=== PATIENT | female | born 2000 | race Caucasian/White ===

== ENCOUNTER 2019-10-19 15:45 | Outpatient (CLI) | payer BC, SELFPAY ==
--- NOTE | ~2019-10-19 | XR_ITS ---
XR chest 2V DATE: 10/19/2019 16:13 INDICATION: Atypical chest pain TECHNIQUE: PA and lateral views COMPARISON: 01/15/2019 2 view chest FINDINGS: Normal heart size. No hilar or mediastinal enlargement. No pulmonary infiltrate or consol idation, pleural effusion, pulmonary vascular congestion or pneumothorax. IMPRESSION: No active cardiopulmonary disease Reviewed, dictated and finalized at location A.
== END 2019-10-19 15:46 | disposition home or self-care (01) ==
LOC: ANHIMG 15:51
PROVIDERS: PCP Physician Assistant; Visit Provider Physician Assistant
DX: R07.89 Other chest pain (principal)
CPT/HCPCS: 71046

== ENCOUNTER 2020-01-02 09:35 | Outpatient (NON) | payer BC, SELFPAY ==
[2020-01-02 22:40] LABS: SARS-CoV-2 RNA PCR Negative
== END 2020-01-02 09:36 ==
LOC: ANHCOVIDDT 09:36
PROVIDERS: PCP Physician Assistant; Visit Provider Physician Assistant
DX: Z20.828 Contact with and (suspected) exposure to other viral communicable diseases (principal)
CPT/HCPCS: 87635; C9803; U0003

== ENCOUNTER 2020-04-06 07:49 | Emergency (ER) | payer BC, SELFPAY ==
--- NOTE | ~2020-04-06 | XR_ITS ---
EXAMINATION: XR chest 1V portable DATE: 04/06/2020 09:57 INDICATION: COVID positive presenting with worsening cough TECHNIQUE: frontal view of the chest was obtained. COMPARISON: Chest radiograph dated 10/19/19 FINDINGS: The lungs remain clear with no focal airspace opacities, pulmonary edema, pleural effusion or pneumot horax. The cardiomediastinal silhouette is normal. Visualized bones and soft tissues are unremarkable . IMPRESSION: 1. Normal chest radiograph. Reviewed, dictated and finalized at location A. PROGRAMMER IMPRESSION: 1. Normal chest radiograph.
[2020-04-06 07:54] VITALS: BP 130/81; PULSE 93; RESP 20; TEMP 36.8; O2SAT 100
--- NOTE | 2020-04-06 09:43 | ED.URI ---
HPI - URI/Sore Throat General Chief Complaint: Upper Respiratory Infection Stated Complaint: cough, covid + 4 weeks ago Time Seen by Provider: 04/06/20 08:37 Source: patient Mode of arrival: ambulatory Limitations: no limitations History of Present Illness HPI Narrative: PAtient is a 19 year old female with history of asthma who presents for evaluation of worsening cough. She states she was diagnosed with covid 4 weeks ago. She was started on antibiotics and steroids on because she has a residual cough. She has come to ER because her cough is worsen. She reports pain in her chest with breathing and cough. She denies fever, chills, nausea, vomiting or wheezing. Related Data Home Medications Medication Instructions Recorded Confirmed albuterol sulfate INHALATION 04/06/20 azithromycin 04/06/20 norgestimate-ethinyl estradiol tablet 04/06/20 [Tri Femynor] prednisone 04/06/20 Allergies Allergy/AdvReac Type Severity Reaction Status Date / Time amoxicillin Allergy Mild Unknown Verified 04/06/20 07:56 cefprozil Allergy Mild Unknown Verified 04/06/20 07:56 codeine Allergy Unknown Unknown Verified 04/06/20 07:56 Review of Systems Review of Systems: All systems reviewed & are unremarkable except as noted in HPI and below Constitutional: Constitutional: Denies chills and Denies fever(s) ENT: Denies nasal congestion Cardiovascular: Cardiovascular: Reports chest pain Respiratory: Respiratory: Reports cough, Denies dyspnea and Denies wheezing Gastrointestinal: Gastrointestinal: Denies abdominal pain, Denies diarrhea, Denies nausea and Denies vomiting [facility] Past Medical History Medical History (Updated 04/06/20 @ 10:55 by Lu Nicolas MD) Asthma Surgical History Surgical History (Updated 04/06/20 @ 10:50 by Lu Nicolas MD) No pertinent past surgical history Social History Social History (Updated 04/06/20 @ 10:50 by Lu Nicolas MD) Smoking status: Never smoker Gender identity (if verbalized by the patient): Female Exam Const: General: no acute distress and alert Orientation/consciousness: patient oriented x3 Eyes: Pupils: Equal, round and reactive pupils present EOM: EOMs intact bilaterally Chest: Chest palpation & inspection: normal inspection of the chest Resp: Effort & Inspection: normal respiratory effort and no retractions Auscultation: clear to auscultation bilaterally Cardio: Rate: regular rate Rhythm: regular rhythm Heart sounds: no murmurs GI: GI Palp: Yes Soft to palpation, No Tenderness to palpation present (GI) and No Guarding due to palpation present (GI) Auscultation: normal bowel sounds Skin: General skin exam: normal color Rashes: no rashes Neuro: General: patient oriented x3 and moves all extremities Extrem: General: normal to inspection and no pedal edema Psych: Mental Status: mental status grossly normal Affect: normal affect Course Reevaluation(s) Reevaluation #1: I Discussed with patient labs and xray are unremarkable. She was instructed on how to use MDI. She reports she feels better. I answered all questions and concerns. Date: 04/06/20 Time: 10:52 Vital Signs Vital signs: Vital Signs Temperature 98.3 F 04/06/20 07:54 Pulse Rate 93 04/06/20 07:54 Respiratory Rate 20 04/06/20 07:54 Blood Pressure 130/81 04/06/20 07:54 Pulse Oximetry 100 04/06/20 07:54 Temperature 98.3 F 04/06/20 07:54 Pulse Rate 115 H 04/06/20 11:05 Respiratory Rate 18 04/06/20 11:05 Blood Pressure 131/69 04/06/20 11:05 Pulse Oximetry 100 04/06/20 11:05 MDM - URI/Sore Throat Lab Data Attestation: I reviewed the patient's lab results. Result diagrams: 04/06/20 09:56 04/06/20 09:56 Labs: Lab Results 04/06/20 04/06/20 04/06/20 Range/Units 09:56 09:56 09:56 WBC 10.1 H (4.5-10.0) K/mm3 RBC 4.80 (4.2-5.4) M/mm3 Hgb 13.6 (12.0-15.0) g/dL Hct 40.5
[2020-04-06] MEDS: ALBUTEROL SULFATE (*SP) INHALER 1 PUFF (09:54)
[2020-04-06] MEDS: ALBUTEROL SULFATE (*SP) AEROSOL 1 PUFF 6 PUFF INHALATION (09:54)
[2020-04-06 10:02] LABS: Basophils Percent Auto 0.3 % (0.2-1.2); Eosinophils Percent Auto 0.3 % (0-4.4); Hematocrit 40.5 % (37.0-47.0); Hemoglobin 13.6 g/dL (12.0-15.0); Immature Granulocyte Absolute 0.03 K/mm3 (0.00-0.031); Immature Granulocyte Percent A 0.3 % (0-0.5); Lymphocytes Absolute Auto 2.19 K/mm3 (0.9-3.2); Lymphocytes Percent Auto 21.7 % (18.3-44.2); Mean Corpuscular HGB Conc 33.6 g/dl (32-36); Mean Corpuscular Hemoglobin 28.3 pg (26-34); Mean Corpuscular Volume 84.4 fl (80-100); Mean Platelet Volume 9.6 fl (7.4-10.4); Monocytes Absolute Auto 0.5 K/mm3 (0.1-0.6); Monocytes Percent Auto 5.4 % (2.6-8.5); Neutrophils Absolute Auto 7.3 K/mm3 (1.3-6.7); Platelet Count Result 312 k/mm3 (150-375); Red Cell Distribution Width 13.4 % (11.5-14.5); White Blood Count 10.1 K/mm3 (4.5-10.0)
[2020-04-06 10:13] LABS: D Dimer 0.38 ug/mL (<0.48)
[2020-04-06 10:16] LABS: Alanine Aminotransferase 17 U/L (4-35); Albumin Level 4.4 g/dL (3.5-5.1); Alkaline Phosphatase 66 U/L (38-126); Anion Gap 7 mmol/L (8-16); Aspartate Amino Transferase 21 U/L (14-36); Bilirubin,Total 0.3 mg/dL (0.2-1.3); Blood Urea Nitrogen 10 mg/dL (7-17); CRP < 0.5 mg/dL (<1.0); Calcium 9.6 mg/dL (8.4-10.2); Carbon Dioxide 23 mmol/L (22-30); Chloride 109 mmol/L (98-107); Estimated CRCL calculation 103 ml/min; Estimated Glomerular Filt Rate > 60; Glucose 92 mg/dL (65-105); Potassium 3.1 mmol/L (3.4-5.0); Sodium 139 mmol/L (137-145)
[2020-04-06 11:05] VITALS: BP 131/69; PULSE 115; RESP 18; O2SAT 100
== END 2020-04-06 11:06 | disposition home or self-care (01) ==
PROVIDERS: Emergency Provider General Practice; PCP Physician Assistant
DX: R05 Cough (principal); Z86.16 Personal history of COVID-19; J45.909 Unspecified asthma, uncomplicated
CPT/HCPCS: 36415; 71045; 80053; 85025; 85380; 86140; 94640; 99283; A9270

== ENCOUNTER → 2020-10-28 17:11 | Outpatient (CLI) | payer BC, SELFPAY ==
--- NOTE | ~2020-10-28 | XR_ITS ---
XR knee RT min 4V DATE: 10/28/2020 18:19 INDICATION: Right knee pain TECHNIQUE: 4 views COMPARISON: None FINDINGS: No fracture or dislocation or joint effusion. No periosteal reaction or bone destruction. N o radiopaque intra-articular loose body or chondrocalcinosis. IMPRESSION: Negative Reviewed, dictated and finalized at location A. IMPRESSION: Negative
== END ==
PROVIDERS: PCP Physician Assistant; Visit Provider Physician Assistant
DX: M25.561 Pain in right knee (principal)
CPT/HCPCS: 73564

== ENCOUNTER → 2021-03-27 16:34 | Outpatient (CLI) | payer BC, SELFPAY ==
--- NOTE | ~2021-03-27 | XR_ITS ---
EXAMINATION: XR foot LT min 3V DATE: 03/27/2021 17:19 INDICATION: Left foot pain TECHNIQUE: Dorsoplantar, lateral, and 2 oblique views of the left foot were obtained. COMPARISON: 06/19/2015 FINDINGS: There is no fracture, dislocation, or subluxation. The bones and joint spaces are normal. T here is mild dorsal soft tissue swelling of the foot overlying the metatarsals. IMPRESSION: 1. Mild soft tissue swelling without acute osseous abnormality. Reviewed, dictated and finalized at location F. DENTIAL INSTALLER
== END ==
PROVIDERS: PCP Physician Assistant; Visit Provider Physician Assistant
DX: M79.672 Pain in left foot (principal); M79.89 Other specified soft tissue disorders
CPT/HCPCS: 73630

== ENCOUNTER 2022-05-02 19:25 | Emergency (ER) | payer BC, SELFPAY ==
[2022-05-02 19:31] VITALS: BP 145/90; PULSE 114; RESP 18; TEMP 36.8; O2SAT 100
[2022-05-02] MEDS: KETOROLAC 30 MG/ML VIAL (*BKC) 15 MG IV PUSH (23:11)
[2022-05-02] MEDS: SODIUM CHLORIDE 0.9% IV 1,000 ML 999 ML IV CONT (23:11)
[2022-05-02 23:16] LABS: Strep Group A RT-PCR NOT DETECTED (Negative)
[2022-05-02 23:23] VITALS: TEMP 37.2
[2022-05-02 23:26] LABS: Influenza A QL RT-PCR Negative (Negative); Influenza B QL RT-PCR Negative (Negative); SARS-CoV-2 RNA PCR Negative
--- NOTE | 2022-05-02 23:44 | ED.GENADULT ---
HPI - General Adult General Chief complaint: Fever Stated complaint: flu like symptom, post tonsil removal x 2 weeks Time Seen by Provider: 05/02/22 22:07 History of Present Illness HPI narrative: Patient is a 21-year-old female who presents the emergency department with chief complaint of sore throat and fever. Patient reports that she had a tonsillectomy approximately 2 weeks ago and last night started having fever and body aches and a sore throat. Related Data Home Medications Medication Instructions Recorded Confirmed norgestimate-ethinyl estradiol tablet 04/06/20 0.18 mg/0.215mg/0.25mg-35 mcg(28)tablet (Tri Femynor) Allergies Allergy/AdvReac Type Severity Reaction Status Date / Time amoxicillin Allergy Mild Unknown Verified 05/02/22 19:33 cefprozil Allergy Mild Unknown Verified 05/02/22 19:33 codeine Allergy Unknown Unknown Verified 05/02/22 19:33 Review of Systems Review of Systems: A 10 system review of systems was completed on the patient and is negative except for what is stated in the HPI. Nursing and ancillary documentation was reviewed. [facility] Past Medical History Medical History Asthma Depression Generalized anxiety disorder History of COVID-19 Migraines Surgical History Surgical History No pertinent past surgical history Social History Social History Smoking status: Never smoker Gender identity (if verbalized by the patient): Female Exam Narrative: GENERAL: Well-appearing, well-nourished, and in no acute distress. HEAD: Normocephalic, atraumatic. EYES: PERRLA and EOMI. ENT: Nares clear, no rhinorrhea or epistaxis. Mucous membranes moist. Erythema present and eschar present NECK: Supple. CHEST: Clear to auscultation. No respiratory distress. HEART: Regular rate and rhythm. No murmur heard. Normal peripheral pulses. ABDOMEN: Soft, nontender, nondistended, normal active bowel sounds. EXTREMITIES: Normal range of motion. No edema. SKIN: Warm, dry, no rash. NEURO: No focal deficits. Alert and oriented x3. PSYCH: Normal mood and affect. Course Vital Signs Vital signs: Vital Signs Temperature 36.8 C 05/02/22 19:31 Pulse Rate 114 H 05/02/22 19:31 Respiratory Rate 18 05/02/22 19:31 Blood Pressure 145/90 H 05/02/22 19:31 Pulse Oximetry 100 05/02/22 19:31 Temperature 37.2 C 05/02/22 23:23 Pulse Rate 114 H 05/02/22 19:31 Respiratory Rate 18 05/02/22 19:31 Blood Pressure 145/90 H 05/02/22 19:31 Pulse Oximetry 100 05/02/22 19:31 Medical Decision Making MDM Narrative Medical decision making narrative: Differential diagnosis includes strep pharyngitis viral pharyngitis COVID influenza. Patient was negative for strep and negative for flu and COVID. Was hydrated and given Toradol in the emergency department. Vital Signs Vital Signs: Vital Signs Temperature 36.8 C 05/02/22 19:31 Pulse Rate 114 H 05/02/22 19:31 Respiratory Rate 18 05/02/22 19:31 Blood Pressure 145/90 H 05/02/22 19:31 Pulse Oximetry 100 05/02/22 19:31 Temperature 37.2 C 05/02/22 23:23 Pulse Rate 114 H 05/02/22 19:31 Respiratory Rate 18 05/02/22 19:31 Blood Pressure 145/90 H 05/02/22 19:31 Pulse Oximetry 100 05/02/22 19:31 Lab Data Labs: Lab Results 05/02/22 05/02/22 Range/Units 22:40 22:40 Influenza A (RT-PCR) Negative (Negative) Influenza B (RT-PCR) Negative (Negative) SARS-CoV-2 RNA (RT-PCR) Negative Group A Strep (PCR) Not detected (Negative) Discharge Plan Discharge Clinical Impression: Pharyngitis Patient Disposition: Home, Self-Care Condition: Stable Instructions: Antibiotic Form, Pharyngitis (ED) Prescriptions: New prednisone 20 mg tablet 40 mg PO DAILY 5 Days Qty: 10 0RF N
== END 2022-05-03 00:29 | disposition home or self-care (01) ==
PROVIDERS: Emergency Provider Emergency Medicine; PCP Family Medicine
DX: J02.9 Acute pharyngitis, unspecified (principal); Z20.822 Contact with and (suspected) exposure to COVID-19; J45.909 Unspecified asthma, uncomplicated; Z86.16 Personal history of COVID-19
CPT/HCPCS: 87636; 87651; 96361; 96374; 99284; J1885; J7030

== ENCOUNTER 2022-06-02 18:44 | Emergency (ER) | payer BC, SELFPAY ==
--- NOTE | ~2022-06-02 | XR_ITS ---
EXAMINATION: XR forearm LT 2V INDICATION: Left forearm pain TECHNIQUE: Two views of the left forearm are obtained. COMPARISON: None available FINDINGS: No fracture, dislocation, or subluxation. The bones, soft tissues, and joint spaces are nor mal. IMPRESSION: 1. No acute osseous abnormality. Reviewed, dictated and finalized at location F.
--- NOTE | ~2022-06-02 | XR_ITS ---
EXAMINATION: XR wrist LT min 3V DATE: 06/02/2022 19:25 INDICATION: Left wrist pain TECHNIQUE: Posteroanterior, ulnar deviation, oblique, and lateral views of the left wrist were obtain ed. COMPARISON: None available FINDINGS: No fracture, dislocation, or subluxation. The bones, soft tissues, and joint spaces are nor mal. IMPRESSION: 1. No acute osseous abnormality. Reviewed, dictated and finalized at location F.
--- NOTE | 2022-06-02 18:53 | ED.UPPEXIN ---
HPI - Extremity Injury (Upper) General Chief Complaint: Extremity Injury, Upper Stated Complaint: left wrist injury Source: patient Mode of arrival: ambulatory History of Present Illness HPI narrative: 21-year-old female with a history of right wrist sprain attempted to restrain her dog during which she hyperextended her left wrist and presents to the ER with left wrist and left forearm pain. No other injuries noted. complaint: injury to: left Onset (ago): hour(s) ( 1 hour ago) Other Extremity Injury: Left: wrist and forearm Other injuries: none Handedness: right Place: home Severity: moderate Relieving factors: immobilization Exacerbating factors: movement of extremity Context: other ( hyperextended left wrist) Associated symptoms: denies other symptoms Related Data Home Medications Medication Instructions Recorded Confirmed norgestimate-ethinyl estradiol tablet 04/06/20 0.18 mg/0.215mg/0.25mg-35 mcg(28)tablet (Tri Femynor) Allergies Allergy/AdvReac Type Severity Reaction Status Date / Time amoxicillin Allergy Mild Unknown Verified 05/02/22 19:33 cefprozil Allergy Mild Unknown Verified 05/02/22 19:33 codeine Allergy Unknown Unknown Verified 05/02/22 19:33 Review of Systems Review of Systems: All systems reviewed & are unremarkable except as noted in HPI and below PMFSH Past Medical History Medical History Asthma Depression Generalized anxiety disorder History of COVID-19 Migraines Surgical History Surgical History No pertinent past surgical history Social History Social History Smoking status: Never smoker Gender identity (if verbalized by the patient): Female Exam Const: General: healthy appearing and no acute distress Orientation/consciousness: patient oriented x3 Limitations: no limitations HENMT: Head: normal to inspection Ears: external ears normal Face/Nose/Sinus: Normal external nose present Face and sinus: normal facial exam Mouth: Yes Normal oral and palatal mucosa present Throat: posterior oropharynx normal Eyes: Conjunctivae: conjunctivae normal Pupils: Equal, round and reactive pupils present EOM: EOMs intact bilaterally Neck: Neck: normal visual inspection, no lymphadenopathy and no meningeal signs Chest: Chest palpation & inspection: normal inspection of the chest Resp: Effort & Inspection: normal respiratory effort Auscultation: clear to auscultation bilaterally Cardio: Rate: regular rate Rhythm: regular rhythm GI: GI Palp: Yes Soft to palpation : General: Yes no CVA tenderness Back/Spine/Pelvis: Back: no CVA tenderness Skin: General skin exam: normal color Rashes: no rashes Wounds: no wounds Neuro: General: patient oriented x3, moves all extremities, no meningeal signs, no focal motor deficits and CN's II-XI intact bilaterally Cranial nerves: Yes Nystagmus not present Speech: normal speech Extrem: General: normal to inspection, no clubbing, cyanosis or edema and no pedal edema Psych: Mental Status: mental status grossly normal Affect: normal affect Attitude: cooperative Course Course Emergency Course: left wrist pain/ left forearm pain- x-rays unremarkable without any fracture/ dislocation. The patient received Toradol with improvement of symptoms. Will discharge her home with the splint Vital Signs Vital signs: Vital Signs Temperature 37.1 C 06/02/22 18:54 Pulse Rate 93 06/02/22 18:54 Respiratory Rate 16 06/02/22 18:54 Blood Pressure 134/83 06/02/22 18:54 Pulse Oximetry 100 06/02/22 18:54 Oxygen Delivery Room Air 06/02/22 18:54 Temperature 37.1 C 06/02/22 18:54 Pulse Rate 93 06/02/22 18:54 Respiratory Rate 16 06/02/22 18:54 Blood Pressure 134/83 06/02/22 18:54 Pulse Oximetry 100 06/02/22 18:54 Oxygen Delivery Room Air
[2022-06-02 18:54] VITALS: BP 134/83; PULSE 93; RESP 16; TEMP 37.1; O2SAT 100
[2022-06-02] MEDS: KETOROLAC 30 MG/ML VIAL (*BKC) IM (19:03)
[2022-06-02 20:14] VITALS: BP 126/80; PULSE 90; RESP 20; TEMP 36.6; O2SAT 100
== END 2022-06-02 20:16 | disposition home or self-care (01) ==
PROVIDERS: Emergency Provider Internal Medicine Critical Care Medicine; PCP Family Medicine
DX: S63.502A Unspecified sprain of left wrist, initial encounter (principal); X50.0XXA Overexertion from strenuous movement or load, initial encounter
CPT/HCPCS: 73090; 73110; 96372; 99283; J1885

== ENCOUNTER 2023-08-19 16:17 | Outpatient (CLI) | payer BC, SELFPAY ==
--- NOTE | ~2023-08-19 | XR_ITS ---
EXAMINATION: XR lumbar spine 2-3V DATE: 08/19/2023 16:30 INDICATION: Low back pain. TECHNIQUE: 3 views of lumbar spine including standing views were obtained. COMPARISON: None. FINDINGS: There is 5 degrees dextrocurvature of thoracolumbar spine. Vertebral body heights are doroteo l. Intervertebral disc heights are normal. There is multilevel mild facet joint osteoarthritis. IMPRESSION: 1. Mild lumbar facet joint osteoarthritis. Reviewed, dictated and finalized at location E.
== END 2023-08-19 16:18 ==
PROVIDERS: PCP Chiropractor; Visit Provider Chiropractor
DX: M47.896 Other spondylosis, lumbar region (principal)
CPT/HCPCS: 72100

== ENCOUNTER 2024-01-10 17:26 | Emergency (ER) | payer BC, SELFPAY ==
--- NOTE | ~2024-01-10 | XR_ITS ---
CHEST RADIOGRAPH, PA AND LATERAL CLINICAL HISTORY: sob congestion for 1 week hx asthma . COMPARISON: None available TECHNIQUE: PA and lateral views of the chest. FINDINGS The cardiomediastinal silhouette is unremarkable. Moderate peribronchial thickening is present. The lungs are otherwise clear. Visualized osseous structures and soft tissues are unremarkable. IMPRESSION: Moderate peribronchial thickening, without focal infiltrate or effusion. Reviewed, dictated and finalized at location A. PACKER
[2024-01-10 17:26] VITALS: BP 139/95; PULSE 88; RESP 20; TEMP 36.6; O2SAT 100
--- NOTE | 2024-01-10 17:32 | ED.ASTHMA ---
HPI - Asthma General Chief Complaint: Asthma Stated Complaint: Asthma Time Seen by Provider: 01/10/24 17:31 Source: patient Mode of arrival: ambulatory Limitations: no limitations History of Present Illness HPI Narrative: patient is a 23-year-old female with a cough and congestion of the chest and shortness of breath for the past week. Patient has asthma. She is only using albuterol inhaler as her main asthma medication. No concerns for . MD complaint: asthma attack and shortness of breath Onset (ago): week(s) (1) Severity: moderate Context: other ( Patient was sick for the past week and she was tested for COVID which was negative last week; she has been using albuterol) Associated symptoms: other ( nonproductive cough) Asthma History: adult onset Treatments Prior to Arrival: inhaled bronchodilator Related Data Current Asthma Therapy: inhaled bronchodilator Home Medications Medication Instructions Recorded Confirmed loratadine 10 mg tablet (Claritin) 10 mg PO DAILY 12/28/23 01/10/24 spironolactone 25 mg tablet 25 mg PO DAILY 12/28/23 01/10/24 Allergies Allergy/AdvReac Type Severity Reaction Status Date / Time amoxicillin Allergy Mild Unknown Verified 01/10/24 17:31 cefprozil Allergy Mild Unknown Verified 01/10/24 17:31 codeine Allergy Unknown Unknown Verified 01/10/24 17:31 Review of Systems Review of Systems: All systems reviewed & are unremarkable except as noted in HPI and below Constitutional: Constitutional: Reports no additional constitutional complaints Eyes: Eyes: Reports no additional eye complaints ENT: Reports system reviewed and no additional complaints, except as documented Cardiovascular: Cardiovascular: Reports no additional cardiovascular complaints Respiratory: Respiratory: Reports no additional respiratory complaints Gastrointestinal: Gastrointestinal: Reports no additional gastrointestinal complaints Genitourinary: Genitourinary: Reports no additional female genitourinary complaints Musculoskeletal: Musculoskeletal: Reports no additional musculoskeletal complaints Integumentary/Breasts: Skin/Breast: Reports system reviewed and no additional complaints, except as docu Neurologic: Reports system reviewed and no additional complaints, except as documented Psychiatric: Psychiatric: Reports no additional psychiatric complaints Endocrine: Endocrine: Reports no additional endocrine complaints Hematologic/Lymphatic: Hematologic/Lymphatic: Reports no additional hematologic/lymphatic complaints Allergic/Immunologic: Allergic/Immunologic: Reports no additional allergic/immunologic complaints [facility] Past Medical History Medical History Asthma Depression Generalized anxiety disorder History of COVID-19 Migraines Surgical History Surgical History Hx of tonsillectomy No pertinent past surgical history Family History Family History Mother Hypertension Father Asthma Grandparent Cancer Social History Social History Smoking status: Never smoker Alcohol intake: current Substance use: never Gender identity (if verbalized by the patient): Female Exam Const: General: healthy appearing Nutritional Appearance: well nourished Orientation/consciousness: patient oriented x3 Limitations: no limitations HENMT: Head: normal to inspection Ears: external ears normal Face/Nose/Sinus: Normal external nose present Eyes: Conjunctivae: conjunctivae normal Pupils: Equal, round and reactive pupils present EOM: EOMs intact bilaterally Neck: Neck: normal visual inspection Chest: Chest palpation & inspection: normal inspection of the chest Resp: Effort & Inspection: abnormal respiratory effort, labored, no retractions, tachypneic and no use of accessory muscles Auscultation: clear to auscultation bilaterally, no crackles, no rales, no rhonchi, no wheezes, breath sounds present and diminished lung sounds ( air trapping diffusely) Cardio: Rate: regular rate Rhythm: regular rhythm Heart sounds: no murmurs GI: Inspection: non-distended GI Palp: Yes Soft to palpation and No Tenderness to palpation present (GI) Auscultation: normal bowel sounds : General: Yes bladder normal to palpation Back/Spine/Pelvis: Back: no CVA tenderness Skin: General skin exam: normal color Lesions: no lesions Wounds: no wounds Neuro: General: patient oriented x3 Cranial nerves: Yes Nystagmus not present Speech: normal speech Gait exam (Neuro): Normal gait present Extrem: General: normal to inspection Psych: Mental Status: mental status grossly normal Affect: normal affect Attitude: cooperative Course Vital Signs Vital signs: Vital Signs Temperature 36.6 C 01/10/24 17:26 Pulse Rate 88 01/10/24 17:26 Respiratory Rate 20 01/10/24 17:26 Blood Pressure 139/95 H 01/10/24 17:26 Pulse Oximetry 100 01/10/24 17:26 Oxygen Delivery Room Air 01/10/24 17:26 Temperature 36.6 C 01/10/24 17:26 Pulse Rate 88 01/10/24 17:26 Respiratory Rate 20 01/10/24 17:26 Blood Pressure 139/95 H 01/10/24 17:26 Pulse Oximetry 100 01/10/24 17:34 Oxygen Delivery Room Air 01/10/24 17:34 MDM - Asthma MDM Narrative Medical decision making narrative: patient is a 23-year-old female with known asthma having a flare at this time. We will do a chest x-ray and start treatment. We will do a COVID test. Lab Data Attestation: I reviewed the patient's lab results. Labs: Lab Results 01/10/24 Range/Units 17:33 Influenza A (RT-PCR) Negative (Negative) Influenza B (RT-PCR) Negative (Negative) RSV (RT-PCR) Negative (Negative) SARS-CoV-2 RNA (RT-PCR) Negative (Negative) Imaging Data Attestation: I personally reviewed and interpreted this imaging study as follows: Radiologist's impression: Chest x-ray shows peribronchial thickening without infiltrate or other acute process Discharge Plan Discharge Clinical Impression: Asthma with acute exacerbation Patient Disposition: Home, Self-Care Condition: Stable Instructions: Antibiotic Form, Asthma (ED) Additional Instructions: please follow-up with primary doctor in the next week. Start the steroid pack tomorrow morning. Start the inhaler tonight. Start antibiotics tonight. Prescriptions: New fluticasone propion-salmeterol [Advair Diskus] 100-50 mcg/dose blister with device 1 inh inhalation BID Qty: 60 0RF methylprednisolone [Medrol (Bear)] 4 mg tablets,dose pack See Rx Instructions .ROUTE .COMPLEX Qty: 21 0RF Rx Instructions: orally per package directions azithromycin 250 mg tablet See Rx Instructions .ROUTE .COMPLEX Qty: 6 0RF Rx Instructions: For 250 mg dose pack: take 500 mg today (day 1), then 250 mg for 4 days (days 2-5) No Action spironolactone 25 mg tablet 25 mg PO DAILY loratadine [Claritin] 10 mg tablet 10 mg PO DAILY rizatriptan 10 mg tablet,disintegrating See Rx Instructions .ROUTE .COMPLEX Qty: 9 1RF Dose Instruction: PLACE 1 TABLET ON THE TONGUE AND ALLOW TO DISSOLVE ONCE A DAY NEEDED FOR 12 DAYS Rx Instructions: PLACE 1 TABLET ON THE TONGUE AND ALLOW TO DISSOLVE ONCE A DAY NEEDED FOR 12 DAYS escitalopram oxalate 10 mg tablet See Rx Instructions .ROUTE .COMPLEX Qty: 90 2RF Dose Instruction: TAKE 1 TABLET BY MOUTH EVERY DAY Rx Instructions: TAKE 1 TABLET BY MOUTH EVERY DAY norgestimate-ethinyl estradiol 0.18/0.215/0.25 mg-35 mcg (28) tablet 1 tablet PO DAILY Qty: 84 1RF Follow-up/Referrals: Tj Perdomo MD [Primary Care Provider] - Time of Disposition: 18:35
[2024-01-10 17:34] VITALS: O2SAT 100
--- NOTE | 2024-01-10 17:35 | PC.NURSE ---
PCR swab collected and walked to lab.
--- NOTE | 2024-01-10 17:41 | PC.NURSE ---
patient taken down to xray
--- NOTE | 2024-01-10 17:48 | PC.NURSE ---
patient back in room from Xray
[2024-01-10] MEDS: methylPREDNISolone SOD SUCC 125 MG VIAL IM (17:49)
[2024-01-10] MEDS: IPRATROPIUM 0.5 MG/ALBUTEROL SULFATE 2.5 MG AMPUL.NEB 3 ML INHALATION (17:49)
[2024-01-10 18:00] VITALS: BP 124/81; PULSE 93; RESP 17; O2SAT 100
[2024-01-10 18:19] LABS: SARS-CoV-2 RNA PCR Negative (Negative)
[2024-01-10 18:20] LABS: Influenza A QL RT-PCR Negative (Negative); Influenza B QL RT-PCR Negative (Negative); RSV RNA, RT-PCR Negative (Negative)
[2024-01-10 18:30] VITALS: BP 136/86; PULSE 91; RESP 16; O2SAT 100
[2024-01-10 18:43] VITALS: BP 120/80; PULSE 89; RESP 17; TEMP 36.7; O2SAT 100
== END 2024-01-10 18:43 | disposition home or self-care (01) ==
LOC: CHSED 18:05
PROVIDERS: Emergency Provider Emergency Medicine; PCP Family Medicine
DX: J45.901 Unspecified asthma with (acute) exacerbation (principal); Z20.822 Contact with and (suspected) exposure to COVID-19
CPT/HCPCS: 71046; 87637; 96372; 99283; J2919

== ENCOUNTER 2025-01-29 14:20 | Outpatient (CLI) | payer OTHER, SELFPAY ==
--- OUTSIDE RECORDS SUMMARY | 2020-09-03 13:52 | XMS_ITS | Encounter Summary ---
Author Organization [facility] Address [address] [place] [address] Phone Care Team Providers Care Spray Gun Repairer Name Role Phone Amy Hutson Primary Care Provider [phone] Reason for Referral * Pulmonology (Routine) - Closed Specialty Diagnoses / Procedures Referred By Daina ca Referred To Contact Pulmonology Diagnoses History of 2018 novel coronavirus disease (COVID-19) SOB (shortness of breath) COVID-19 Encounter for follow-up examination after completed treatment for conditions other than malignant neoplasm Mild intermittent asthma without complication Procedures Pulmonary Function Test -[facility]FT [facility]- [facility]; Standard, Oxygen Assessment Titration; Spirometry, Spirometry w/bronchodilator, DLCO and Lung Volumes Suzette Blair NP Phone: tel: fax: Referral ID Status Reason Start Date Expiration Date Visits Re quested Visits Authorized [id number] Closed 08/13/2020 09/12/2021 99 99 Reason for Visit * Pulmonology (Routine) - Closed Specialty Diagnoses / Procedures Referred By Daina ca Referred To Contact Pulmonology Diagnoses History of 2019 novel coronavirus disease (COVID-19) SOB (shortness of breath) COVID-19 Encounter for follow-up examination after completed treatment for conditions other than malignant neoplasm Mild intermittent asthma without complication Procedures Pulmonary Function Test -[facility]- [facility]; Standard, Oxygen Assessment Titration; Spirometry, Spirometry w/bronchodilator, DLCO and Lung Volumes Suzette Blair NP Phone: tel: fax: Referral ID Status Reason Start Date Expiration Date Visits Re quested Visits Authorized [id number] Closed 08/13/2020 09/12/2021 99 99 Encounter Details Date Type Department Care Team (Latest Contact Info) Description 09/03/2020 2:52 PM CDT Hospital Encounter [facility] Medicine PFT Lab [address] [facility] [place] [address] [place] [id number] History of 2019 novel coronavirus disease (COVID-19); SOB (shortness of breath); COVID-19; Encounter for follow-up examination after completed treatment for conditions other than malignant neoplasm; Mild intermittent asthma without complication Social History Tobacco Use Types Packs/Day Years Used Date Smoking Tobacco: Never Smokeless Tobacco: Never AUDIT-C Answer Date Recorded Q1: How often do you have a drink containing alc ohol? 2-4 times a month 11/12/2022 Average Number of Drinks Not on file 023 Frequency of Binge Drinking Not on file 10/2022 PHQ-2 Answer Date Recorded PHQ-2 Total Score 0 08/13/2020 Personal Safety Answer Date Recorded Have you ever been in or are you currently in a harmful physical or emotional relationship or is someone making you feel afraid or unsafe? Denies 11/12/2022 Comments No Sex and Gender Information Value Date Recorded Sex Assigned at Not on file Legal Sex Female 10:29 AM WEEDER THINNER Gender Identity Not on file Sexual Orientation Not on file documented as of this encounter Functional Status * Question Answer Date of Assessment Author MAP (mmHg) 89 11/12/2022 2:45 PM CDT Evie Sen RN * Naranjo Fall Risk Question Answer Date of Assessment Author History of Falling 0 11/12/2022 9:00 AM ANGELEST Meggan Clancy RN Secondary Diagnosis 0 11/12/2022 9:00 AM ANGELES T Meggan Clancy RN Ambulatory Aids 0 11/12/2022 9:00 AM CDT Sc hrodtMeggan RN Intravenous Therapy/Heparin/Saline Lock 20 11/12/2022 9:00 AM Meggna Grande RN Gait/Transferring 0 11/12/2022 9:00 AM Meggan Grande RN Mental Status 0 11/12/2022 9:00 AM CDT Meggan Fink RN Naranjo Fall Risk Score (Score >= 45 places fall precaution order) 20 11/12/2022 9:00 AM ANGELEST Meggan Clancy RN Prior Fall Event (Autopopulated from EMR) None found 11/12/2022 9:00 AM CDT Jeffrey Clancy ra, RN * BP Location Answer Date of Assessment Author Right arm 03/17/2021 2:05 PM Dana Barriga RN * Alcohol Withdrawal BP Hierarchy Answer Date of Assessment Author 68 11/12/2022 2:49 PM ANGELEST Meggan Clancy RN * Alcohol Use Question Answer Date of Assessment Author Q1: How often do you have a drink containing alcohol? 2-4 times a month 11/12/2022 9:51 AM ANGELEST Meggan Clancy RN Q2: How many drinks containing alcohol do you have on a typical day when you are drinking? 1 or 2 11/05/2022 4:19 PM ANGELEST Milana Doe RN * BP Location Answer Date of Assessment Author Right arm 03/17/2021 2:05 PM Dana Barriga RN documented as of this encounter Plan of Treatment Not on file documented as of this encounter Procedures Procedure Name Priority Date/Time Associated Diagnosis Comments PULMONARY FUNCTION TEST (PFT) Routine 09/03/2020 4:18 PM CDT History of 2019 novel coronavirus disease (COVID-19) SOB (shortness of breath) COVID-19 Encounter for follow-up examination after completed treatment for conditions other than malignant neoplasm Mild intermittent asthma without complication documented in this encounter Results * Pulmonary Function Test - (09/03/2020 4:18 PM CDT) FVC PRE 3.68 L [facility] FVC %PRE PRED 94 % [facility] FEV1 PRE 3.15 L [facility] FEV1 %PRE PRED 93 % [facility] FEV1/FVC PRE 85.6 % [facility] FRC PL PRE 2.06 L [facility] FRC PL %PRE PRED 74 % [facility] RV PRE 1.12 L [facility] RV %PRE PRED 90 % [facility] TLC PRE 4.68 L [facility] TLC %PRE PRED 91 % [facility] DLCO PRE 20.5 ml/min/mmH g [facility] DLCO %PRE PRED 90 % [facility] Anatomical Region Laterality Modality PFT 09/03/2020 3:06 PM CDT Narrative 09/15/2020 3:38 PM CDT SEE PDF Standard plus oxygen assessment titration PFT performed at:->[facility] Adult PFT Lab- [facility] Procedure:->Standard Procedure:->Oxygen Assessment Titration Standard:->Spirometry, Spirometry w/bronchodilator, DLCO and Lung Volumes Suzette Cummings ORE MIXER PFT ORDERABLES Final Re sult documented in this encounter Visit Diagnoses Diagnosis History of 2019 novel coronavirus disease (COVID-19) SOB (shortness of breath) Shortness of breath COVID-19 Encounter for follow-up examination after completed treatment for conditions other than malignant neoplasm Mild intermittent asthma without complication documented in this encounter Additional Health Concerns Infection Onset Date Last Indicated Resolved Time COVID: Suspected 02/16/2021 02/16/2021 02/17/2021 8:17 AM WEEDER THINNER COVID: Suspected 03/17/2021 03/17/2021 03/17/2021 2:29 PM WEEDER THINNER documented as of this encounter Care Teams Spray Gun Repairer Relationship Specialty Start Date End Date Amy Hutson PA [address] [place] [address] PCP - General Gastroenterology 07/18/18 documented as of this encounter
--- NOTE | ~2025-01-29 | XR_ITS ---
EXAMINATION: XR toe 1st RT min 2V, 01/29/2025 14:25 SENIOR IT SECURITY ANALYST HISTORY: S99.929A - Unspecified injury of unspecified foot, initia... COMPARISON: No comparisons available. Findings: No acute fracture or malalignment. No significant degenerative changes. Soft tissues unremarkable. Impression: No acute fracture or malalignment. Reviewed, dictated and finalized at location P. OR IT SECURITY ANALYST Impression: No acute fracture or malalignment.
--- OUTSIDE RECORDS SUMMARY | 2025-01-29 16:14 | XMS_ITS | Clinical Summary ---
Author Organization [facility] Address [address] [place] [address] Care Team Providers Care Photocopying Equipment Mechanic Name Role Phone Unavailable Primary Care Provider Unavailabl e Source Comments [facility],non-owned Affiliates and Associated Physician Practices is amultiple site organization consisting of ambulatory clinics and hospital sitesin [place], [place], [place] and [place]. This disclosure is being madepursuant to the Care Everywhere program and may not contain all information available regarding this patient. Last updated 17.[facility] [employer] Social History Tobacco Use Types Packs/Day Years Used Date Smoking Tobacco: Never Assessed Comments Unknown Sex and Gender Information Value Date Recorded Sex Assigned at Not on file Legal Sex Female 2:03 PM SNOUT PULLER Gender Identity Not on file Sexual Orientation Not on file Plan of Treatment Health Maintenance Due Date Last Done Comments HIV SCREENING 2013 HPV VACCINE (1 - 3-dose series) 2013 HEPATITIS C SCREENING 09/24/2016 DTAP/TDAP/TD VACCINES (1 - Tdap) 2017 HEPATITIS B VACCINE (1 of 3 - 19+ 3-dose series) 2017 PAP SMEAR 09/30/2019 DEPRESSION SCREENING 03/07/2024 COVID-19 VACCINE (1 - 2024-2 6 season) 2024 INFLUENZA VACCINE (#1) 2024 ZOSTER VACCINE (1 of 2) 2048 HIB VACCINE Aged Out No longer eligi ble based on patient's age to complete this topic MENINGOCOCCAL (Group B) VACC INE SHARED DECISION-MAKING Aged Out No longer eligibl e based on patient's age to complete this topic MENINGOCOCCAL GROUPS A/C/Y/W VACCINE Aged Out No longer eligible b ased on patient's age to complete this topic PNEUMOCOCCAL VACCINE Aged Out No long er eligible based on patient's age to complete this topic Insurance [facility]
--- OUTSIDE RECORDS SUMMARY | 2025-01-29 16:14 | XMS_ITS | Clinical Summary ---
Author Organization [facility] Address [address] [place] [address] Care Team Providers Care Hotel Front Desk Clerk Name Role Phone Amy Hutson Primary Care Provider [phone] Allergies Active Allergy Reactions Criticality Noted Date Comments Amoxicillin Hives High 06/27/2018 Animal Dander Itching Low 06/27/2018 Cefprozil Hives High 06/27/2018 Levonorgestrel-Ethinyl Estrad Other (See comments) Low 06/27/2018 Sinus related Medications busPIRone (BUSPAR) 10 mg tablet Take 2 tablets (20 mg total) by mouth daily Active TRI-LINYAH 0.18/0.215/0.25 mg-35 mcg (28) per tablet Take 1 tablet by mouth daily 07/15/19 19 Active rizatriptan DIESEL ENGINE MECHANIC APPRENTICE (MAXALT-DIESEL ENGINE MECHANIC APPRENTICE) 10 mg disintegrating tablet Take 1 tablet by mouth as need at the onset of migraine. 06/16/19 19 Active loratadine (CLARITIN) 10 mg tablet Take 1 tablet (10 mg total) by mouth daily as needed for allergies Active escitalopram (LEXAPRO) 10 mg tablet Take 1 tablet (10 mg total) by mouth daily 08/11/19 22 Active spironolactone (ALDACTONE) 100 mg tablet Take 1 tablet (100 mg total) by mouth daily 02/09/20 22 Active gabapentin (NEURONTIN) 100 mg capsuleIndications :Carpal tunnel syndrome, unspecified laterality Take 1 capsule (100 mg total) by mouth nightly 30 capsule 10/05/19 23 Active Additional Information Patient not taking.Reported on 06/14/2024 HYDROcodone-acetam inophen (NORCO) 5-325 mg per tabletIndications: Pain Take 1 tablet by mouth every 6 (six) hours as needed for pain 20 tablet 11/13/19 Active Additional Information Patient not taking.Reported on 06/14/2024 ondansetron ODT (ZOFRAN-ODT) 8 mg disintegrating tabletIndications: Prevention of Post-Operative Nausea and Vomiting Take 1 tablet (8 mg total) by mouth every 8 (eight) hours as needed for nausea or vomiting 12 tablet 1 11/13/19 Active Additional Information Patient not taking.Reported on 06/14/2024 Active Problems Problem Noted Date Diagnosed Date Right carpal tunnel syndrome 10/01/2022 Pronator syndrome, 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 History of 2019 novel coronavirus disease (COVID -19) 08/13/2020 SOB (shortness of breath) 08/13/2020 Mild intermittent asthma without complication Seasonal allergic reaction 06/27/2018 Immunizations Immunization Administration Dates Next Due Hep B, Adolescent or Pediatric 11/03/2000,2000 Influenza, Quadrivalent, Split, Intramuscular ,12/25/2017 Influenza, Quadrivalent, Spl it, Preservative Free, Intramuscular 11/18/2019 Influenza, Trivalent, IM (MDV) 12/25/2017 Pfizer SARS-CoV-2 Monovalent Vaccination (12+ Yrs) PURPLE 06/26/2020,06/05/2020 Pneumococcal Conjugate 7-Valent 04/05/2000 Surgical History Surgery Date Site/Laterality Comments TONSILLECTOMY/ADENOIDECTOMY Medical History Medical History Date Comments Anxiety Asthma Depression Migraines Family History Medical History Relation Name Comments Asthma Father Allergies Mother Anxiety disorder Mother Hypertension Mother Migraines Mother Osteoporosis Mother Supraventricular tachycardia Mother Arthritis Other No Known Problems Sister Relation Name Status Comments Father Alive Mother Alive Other Sister Alive Social History Tobacco Use Types Packs/Day Years Used Date Smoking Tobacco: Never Smokeless Tobacco: Never Tobacco Cessation:Counseling Given: Not Answered AUDIT-C Answer Date Recorded Q1: How often [...] on file Legal 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 TENDER Gender Identity Not on file Sexual Orientation Not on file Last Filed Vital Signs Vital Sign Reading Time Taken Comments Blood Pressure 114/72 06/14/2024 5:48 PM CDT Pulse 100 06/14/2024 5:48 PM CDT Temperature 36.8 C (98.3 F) 06/14/2024 5:48 PM CDT Respiratory Rate 16 06/14/2024 5:48 PM CDT Oxygen Saturation 99% 06/14/2024 5:48 PM CDT Inhaled Oxygen Concentration - - Weight 76.2 kg (168 lb) 06/14/2024 5:48 PM CDT Height 167.6 cm (5' 6) 08/04/2023 4:36 PM CDT Body Mass Index 27.12 08/04/2023 4:36 PM CDT Plan of Treatment Health Maintenance Due Date Last Done Comments Cervical Cancer Screening 1998 Hepatitis C Screening 1998 Pneumococcal vaccine <65 (1 of 1 - PPSV23, PCV20, or PCV21) 2004 04/05/2000 DTaP/Tdap/Td Vaccine (1 - Tdap) 2009 Varicella Vaccines (1 of 2 - 13+ 2-dose series) 09/30/2011 HPV Vaccines (1 - 3-dose series) 2013 Regular Well Visit/Exam 18-64 2016 Depression Screening 08/13/2021 08/13/2020, 08/14/19 21 Covid-19 Vaccine (3 - 2024-2 6 season) 2024 06/26/2020, 06/05/2020 Influenza Vaccine (#1) 2024 0, 12/18/2018, 12/25/2017, Additional history exists Hepatitis B Screening Completed 11/03/2000, 001 Medical Devices Implanted Type Area Picture Frames Inspector Device Identifier Shelf Expiration Date Model / Serial / Lot [employer] Axoguard 10mm 40mm Multilaminar Protector Nerve Extracellular [id number] - [id number] Implanted:Qty: 1 on 11/12/2022 by Estefani Epstein MD at [facility] Right: Forearm [employer] [id number] 06/27/2024 [id number] / / [id number] [employer] Protector Peripheral Nerve Repair Extracellular Matrix Reinforced Wrap Axoguard 3.5x40mm Porcine [id number] - [id number] Implanted:Qty: 1 on 11/12/2022 by Estefani Epstein MD at [facility] Right: Forearm [employer] 09/14/2023 [id number] / / [id number] [place] [employer] [place] [employer] [place] [facility] ACCESS Care Teams Hotel Front Desk Clerk Relationship Specialty Start Date End Date Amy Hutson [place] [address] [place] [address] PCP - General Gastroenterology 07/18/18
--- OUTSIDE RECORDS SUMMARY | 2025-01-29 16:14 | XMS_ITS | Clinical Summary ---
Author Organization [facility] Address [address] [place] [id number] Phone Care Team Providers Care Business Proposal Rep Name Role Phone Provider, Unknown Primary Care Provider Unavaila ble Allergies Active Allergy Reactions Criticality Noted Date Comments Amoxicillin Hives High 06/27/2018 Cefprozil Hives High 06/27/2018 Medications busPIRone (BUSPAR) 10 MG Tablet Take 20 mg by mouth. Active escitalopram (LEXAPRO) 10 MG Tablet Take 10 mg by mouth daily. 08/10/2021 Active Norgestimate-Eth inyl Estradiol (Tri-Linyah) 0.18/0.215/0.25 MG-35 MCG Tablet Take 1 Tablet by mouth daily. 07/14/2018 Active spironolactone (ALDACTONE) 100 MG Tablet Take 100 mg by mouth daily. 02/08/2022 Active Active Problems No known active problems Social History Tobacco Use Types Packs/Day Years Used Date Smoking Tobacco: Never Smokeless Tobacco: Never Comments No Sex and Gender Information Value Date Recorded Sex Assigned at Not on file Legal Sex Female 2:21 PM CDT Gender Identity Not on file Sexual Orientation Not on file Last Filed Vital Signs Vital Sign Reading Time Taken Comments Blood Pressure 140/68 09/01/2023 2:35 PM CDT Pulse 101 09/01/2023 2:35 PM CDT Temperature 36.7 C (98 F) 09/01/2023 2:35 PM CDT Respiratory Rate 20 09/01/2023 2:35 PM CDT Oxygen Saturation 99% 09/01/2023 2:35 PM CDT Inhaled Oxygen Concentration - - Weight - - Height - - Body Mass Index - - Plan of Treatment Health Maintenance Due Date Last Done Comments Hepatitis C Virus (HCV) Screening 1998 TdaP Immunization 1998 Hepatitis B Immunization (3 of 3 - 3-dose series) 01/23/2001 11/03/2000, 10/03/2000 Varicella Immunization (1 of 2 - 13+ 2-dose series) 09/30/2011 Human Papillomavirus (HPV) Immunization (1 - 3-dose series) 2013 Pap Smear 09/30/2019 Influenza Immunization (#1) 11/05/202402/04, 12/28/2021, 11/30/2020, Additional history exists SARS-COV-2 Immunization (2024- season) 2024 01/22/2022, 02/14/2021, 06/26/2020, Additional history exists Respiratory Syncytial Virus (RSV) Immunization (Adult) (1 - 1-dose 75+ series) 2073 Pneumococcal Immunization Combined Aged Out 04/05/2000 No longer eligible based on patient's age to complete this topic Meningococcal Immunization (ACWY) Aged Out No longer eligible based on patient's age to complete this topic Rotavirus Immunization Aged Out No lo nger eligible based on patient's age to complete this topic Insurance [facility] Care Teams Business Proposal Rep Relationship Specialty Start Date End Date Provider, Unknown UNKNOWN PCP - General 09/01/23
== END 2025-01-29 14:21 | disposition home or self-care (01) ==
LOC: CHSIMG 14:24
DX: S99.921A Unspecified injury of right foot, initial encounter (principal)
CPT/HCPCS: 73660